=== PATIENT | male | born 1970 ===

== ENCOUNTER 2021-12-07 15:42 | Emergency (ER) | payer BC ==
[2021-12-07] MEDS ORDERED: Lidocaine 1% 30 ML SDV INJECT ONE (17:51)
[2021-12-07] MEDS ORDERED: Bacitracin Oint 1 GM U/D Packet TOP ONE (18:15)
[2021-12-07] MEDS ORDERED: Diphtheria,Pertussis(Acell),Tetanus Vaccine 0.5 ML Syringe IM ONE (18:16)
== END 2021-12-07 18:24 | disposition home or self-care (01) ==
LOC: DL.ED 15:42
DX: S81.811A Laceration without foreign body, right lower leg, initial encounter (principal); W26.8XXA Contact with other sharp object(s), not elsewhere classified, initial encounter
CPT/HCPCS: 12002; 99282; 99283-25